=== PATIENT | female | born 1960 | race Caucasian/White ===

== ENCOUNTER 2017-07-04 06:07 | Inpatient (IN) | payer OTHER ==
[2017-07-01 09:46] LABS: BASOPHILS # (AUTO) 0.1 (0.0-0.1); EOSINOPHILS # (AUTO) 0.2 (0.0-0.4); EOSINOPHILS % 3.1 % (0.0-6.0); HEMATOCRIT 43.4 % (34.2-44.1); HEMOGLOBIN 14.5 g/dL (12.0-16.0); LYMPHOCYTES # (AUTO) 2.6 (1.0-3.2); LYMPHOCYTES % 37.4 % (18.0-39.1); MEAN CORPUSCULAR HEMOGLOBIN 31.2 pg (28-32); MEAN CORPUSCULAR HGB CONC 33.4 g/dL (31-35); MEAN CORPUSCULAR VOLUME 93.3 fL (81-99); MONOCYTES # (AUTO) 0.5 (0.2-0.8); MONOCYTES % 7.1 % (4.4-11.3); NEUTROPHILS # (AUTO) 3.6 (2.1-6.9); NEUTROPHILS % 51.1 % (38.7-80.0); PLATELET COUNT 346 x10e3/uL (140-360); RED BLOOD COUNT 4.65 x10e6/uL (3.6-5.1); RED CELL DISTRIBUTION WIDTH 13.1 % (11.7-14.4)
--- NOTE | 2017-07-01 10:02 | Diagnostic Imaging Report ---
PROCEDURE: X-RAY CHEST, TWO VIEWS COMPARISON: None. INDICATIONS: PRE OPERATIVE CHEST X-RAY FOR EXPLORATORY LAP SX FINDINGS: LUNGS: No consolidations or edema. PLEURA: No effusions or pneumothorax. HEART \T\ MEDIASTINUM: The heart is within normal size-limits. BONES \T\ SOFT TISSUES: No acute findings. Plate overlies the lower cervical spine. There are sternotomy wire sutures. CONCLUSION: No acute thoracic abnormality. Arsalan Blood D.O. Dictated by: Arsalan Blood D.O. on 07/01/2017 at 10:01 Electronically approved by: Arsalan Blood D.O. on 07/01/2017 at 10:01
[2017-07-01 10:06] LABS: ALANINE AMINOTRANSFERASE 22 IU/L (0-55); ALBUMIN 3.9 g/dL (3.5-5.0); ALBUMIN/GLOBULIN RATIO 1.2 (0.8-2.0); ALKALINE PHOSPHATASE 93 IU/L (40-150); BLOOD UREA NITROGEN 12 mg/dL (7-26); BUN/CREATININE RATIO 16 (6-25); CALCIUM 9.5 mg/dL (8.4-10.2); CARBON DIOXIDE 31 mmol/L (22-29); CHLORIDE 103 mmol/L (98-107); CREATININE, SERUM 0.76 mg/dL (0.57-1.11); EST GLOMERULAR FILTRATION RATE > 60 ML/MIN (60-); GLUCOSE 95 mg/dL (74-118); SODIUM 144 mmol/L (136-145)
[~2017-07-04] VITALS: Ht 162.6 cm; Wt 63.0 kg
[~2017-07-04 06:07] MED LIST: LIBRAX CAPSULE1 EACH PO; NORCO 10-325 T1 EACH PO; NORVASC10 MG PO
--- OUTSIDE RECORDS SUMMARY | 2017-07-04 06:10 | XMS REPORT ---
Author Author [facility] Address Unknown Phone Unavailable Care Team Providers Care Retail Pharmacy Technician Name Role Phone NATALIE CROWE Unavailable Unavailable Problems This patient has no known problems. Allergies, Adverse Reactions, Alerts This patient has no known allergies or adverse reactions. Medications This patient has no known medications. Results Test Description Test Time Test Comments Text Results Atomic Results Result Comments CHEST 2 VIEWS [place] [address] Patient Name: JERARDO WAGONER MR # : [id number] : 1960 Age/Sex: 57/F Req #: [id number] Adm Physician: Ordered by: NATALIE CROWE MD Report #: [id number] Location: OR Room/Bed: Procedure: [id number] DX/CHEST 2 VIEWS Exam Date: 07/01/17 Exam Time: 909 REPORT STATUS: Signed PROCEDURE: X-RAY CHEST, TWO VIEWS COMPARISON: None. INDICATIONS: PRE OPERATIVE CHEST X-RAY FOR EXPLORATORY LAP SX FINDINGS: LUNGS: No consolidations or edema. PLEURA: No effusions or pneumothorax. HEART T MEDIASTINUM: The heart is within normal size-limits. BONES T SOFT TISSUES: No acute findings. Plate overlies the lower cervical spine. There are sternotomy wire sutures. CONCLUSION: No acute thoracic abnormality. Dimple Blood D.O. Dictated by: Dimple Blood D.O. on 07/01/2017 at 10:01 Electronically approved by: Dimple Blood D.O. on 07/01/2017 at 10:01 Dictated By: DIMPLE BLOOD DO 1001 Transcribed By: FRANCISCO on 07/01/17 1001 COPY TO: NATALIE CROWE MD
[2017-07-04] MEDS ORDERED: BUPIVACAINE 0.25% 30ML SDV INJ ONE (10:15)
[2017-07-04] MEDS ORDERED: BUPIVACAINE LIPOSOME/PF 266 MG/20 ML IJ ONE (10:16)
[2017-07-04] MEDS ORDERED: HYDROMORPHONE 0.2MG/ML-SOD CHL 30ML PCA SYRINGE IV PRN (11:15)
[2017-07-04] MEDS ORDERED: NALOXONE HCL INJ 0.4 MG/ML AMP IV PRN (11:15)
[2017-07-04] MEDS ORDERED: ACETAMINOPHEN 1000 MG/100 ML IV PRN (11:15)
[2017-07-04] MEDS: SODIUM CHLORIDE 0.9% 250ML IRRIG IR SCH ×4 (11:15→23:20)
[2017-07-04] MEDS ORDERED: PROMETHAZINE HCL (IM) 25 MG/ML VIAL IV PRN (11:15)
[2017-07-04] MEDS ORDERED: HYDROMORPHONE 0.2MG/ML-SOD CHL 30ML PCA SYRINGE IV ONE (11:44)
[2017-07-04] MEDS ORDERED: HYDROMORPHONE 1MG/1ML INJ ONE ×2 (11:56→13:17)
[2017-07-04] MEDS: PANTOPRAZOLE 40 MG 10ML VIAL IV SCH ×2 (12:00→13:48)
[2017-07-04] MEDS ORDERED: CEFOXITIN 1GM/ DEXTROSE 50ML 50 ML IV SCH (12:00)
[2017-07-04] MEDS ORDERED: PROMETHAZINE HCL (IM) 25 MG/ML VIAL ONE (13:18)
[2017-07-04] MEDS ORDERED: PANTOPRAZOLE 40 MG 10ML VIAL ONE (13:46)
--- NOTE | 2017-07-04 13:50 | Operative Report ---
DATE OF PROCEDURE: July 04, 2017 PREOPERATIVE DIAGNOSIS: Mesenteric mass, rule out malignancy. POSTOPERATIVE DIAGNOSIS: Mesenteric mass, rule out malignancy, pending permanent section. OPERATION PERFORMED: Exploratory laparotomy, resection of mesenteric mass and right ileocolectomy. ASSISTANTS: Dr. Kaleb Huynh and OSKAR French. ANESTHESIA: General. COMPLICATIONS: None. ESTIMATED BLOOD LOSS: Minimal. DESCRIPTION OF PROCEDURE: With the patient lying in bed in the supine position, under good general anesthesia, the abdomen was prepped with Betadine solution and draped in the usual manner. A midline incision was made. It was carried down through the subcutaneous tissue down to the midline fascia. The midline fascia was opened. There were some sutures there from the patient's previous surgeries, and these were removed. The peritoneum was opened, and the abdomen was entered. Upon entering the abdominal cavity, examination immediately revealed in the ileal area there was a mass in the mesentery, which was consistent with a lot of lymph nodes. This was consistent probably with some type of carcinoid or similar type of tumor. The exploration of the rest of the abdominal cavity revealed the liver to be clean. There were some adhesions from her previous upper abdominal surgery. The colon was examined, and on palpation no other lesions were identified. The entire small bowel was run from one end to the other. The only positive findings were to the area of the terminal ileum. There was an area where there appeared to be an intraluminal mass. This was identified with a silk suture, and this was in the area that would drain to the lymph node mass that was present in the mesentery. At this point, we went ahead and resected the small bowel with the mesentery involved. The small bowel was divided proximally with a KENNY stapler. The mesentery was then slowly and carefully divided with the Enseal device. The right ileocolic artery below where the mass was was ligated with #0 silk and divided. At this point, it became evident that the right colon was part of the distribution of the blood supply and we needed to go ahead and extend the resection to the right colon. The right colon had been previously mobilized off the lateral gutter and was then divided about snf up the ascending colon, almost just below the hepatic flexure, with another application of the KENNY-75 stapler. The specimen was sent for frozen section. Frozen section came back as possibly carcinoid, but it was not conclusive. They needed to wait until permanent section was done. Again, the bowel was run in all directions. No other abnormalities were identified. The rest of the abdominal cavity was otherwise within normal limits. The anastomosis was then done by bringing the ileum to the right colon with another application of the KENNY-75 stapler, and the remaining opening was closed with a TIA-60 stapler. Gloves and instruments were changed. The suture lines were then reinforced with 3-0 silk suture, and the mesenteric rent was closed with a running suture of 2-0 Vicryl. The abdomen was then copiously irrigated. All the excess fluid was aspirated. Perfect hemostasis was ascertained, and the abdomen was then closed in layers. Peritoneum was closed with a running suture of #1 Vicryl. The midline fascia was closed with a running suture of #1 Vicryl. All layers were infiltrated on the way out with Exparel and Marcaine. The skin was closed with clips. Dressings were applied. The sponge, lap and needle count was correct. Patient tolerated the procedure well and returned to the recovery room in stable condition. Job#: [id number]
[2017-07-04] MEDS: CEFOXITIN SOD 1 GM VIAL IV SCH ×2 (15:58→20:58)
[2017-07-04 15:59] VITALS: BP 143/82
[2017-07-04 16:16] VITALS: BP 143/82
[2017-07-04 16:24] VITALS: BP 143/82
[2017-07-04] MEDS ORDERED: PROPOFOL IV EMULSION 10 MG/ML 20 ML VIAL ONE (17:27)
[2017-07-04] MEDS ORDERED: LIDOCAINE HCL 2% LOCAL INJ 5 ML SDV VIAL INJ ONE (17:27)
[2017-07-04] MEDS ORDERED: DEXAMETHASONE SOD PHOS INJ 4 MG/ML VIAL ONE (17:27)
[2017-07-04] MEDS ORDERED: SEVOFLURANE INHAL SOLN 250 ML PEN BTL ONE (17:27)
[2017-07-04] MEDS ORDERED: ROCURONIUM BROMIDE 10 MG/ML 5ML VIAL ONE (17:27)
[2017-07-04] MEDS ORDERED: NEOSTIGMINE 5 MG/5ML SYR ONE (17:27)
[2017-07-04] MEDS ORDERED: CEFOXITIN SOD 1 GM VIAL ONE (17:27)
[2017-07-04] MEDS ORDERED: GLYCOPYRROLATE INJ 1MG/ 5 ML SYR ONE (17:27)
[2017-07-04] MEDS ORDERED: ONDANSETRON HCL INJ 2 MG/ML VIAL ONE (17:27)
[2017-07-04] MEDS ORDERED: MIDAZOLAM HCL 2 MG/2 ML VIAL ONE (18:33)
[2017-07-04] MEDS ORDERED: FENTANYL CITRATE/PF 100MCG/2 ML INJ ONE (18:33)
[2017-07-04] MEDS: DEXTROSE 5%/LACTATED RINGERS 1,000 ML IV SCH ×2 (18:44→20:58)
[2017-07-04 20:15] VITALS: BP 148/70
[2017-07-05] VITALS (8 sets, daily range): BP systolic 148–197; BP diastolic 70–87
[2017-07-05] MEDS: SODIUM CHLORIDE 0.9% 250ML IRRIG IR SCH ×6 (03:39→23:15)
[2017-07-05] MEDS: PROMETHAZINE 12.5MG/ NACL 0.9% 50 ML IV PRN ×3 (06:50→15:19)
[2017-07-05 07:08] LABS: BASOPHILS % 0.1 % (0.0-1.0); HEMATOCRIT 40.1 % (34.2-44.1); HEMOGLOBIN 13.5 g/dL (12.0-16.0); LYMPHOCYTES # (AUTO) 1.3 (1.0-3.2); MEAN CORPUSCULAR HEMOGLOBIN 31.3 pg (28-32); MEAN CORPUSCULAR HGB CONC 33.7 g/dL (31-35); MONOCYTES % 6.7 % (4.4-11.3); NEUTROPHILS # (AUTO) 11.9 (2.1-6.9); NEUTROPHILS % 82.9 % (38.7-80.0); PLATELET COUNT 338 x10e3/uL (140-360); RED BLOOD COUNT 4.31 x10e6/uL (3.6-5.1); RED CELL DISTRIBUTION WIDTH 12.9 % (11.7-14.4)
[2017-07-05] MEDS: DEXTROSE 5%/LACTATED RINGERS 1,000 ML IV SCH ×3 (07:10→22:11)
[2017-07-05 07:42] LABS: ANION GAP 10.9 mmol/L (8-16); BLOOD UREA NITROGEN 8 mg/dL (7-26); BUN/CREATININE RATIO 10 (6-25); CALCIUM 9.4 mg/dL (8.4-10.2); CARBON DIOXIDE 30 mmol/L (22-29); CHLORIDE 97 mmol/L (98-107); CREATININE, SERUM 0.82 mg/dL (0.57-1.11); EST GLOMERULAR FILTRATION RATE > 60 ML/MIN (60-); GLUCOSE 155 mg/dL (74-118); POTASSIUM 3.9 mmol/L (3.5-5.1); SODIUM 134 mmol/L (136-145)
[2017-07-05] MEDS: NITROGLYCERIN 2% OINT 1 GM PKT TOP SCH ×3 (08:28→22:32)
[2017-07-05] MEDS ORDERED: HYDROMORPHONE 0.2MG/ML-SOD CHL 30ML PCA SYRINGE IV PRN (10:15)
[2017-07-06] VITALS (7 sets, daily range): BP systolic 144–175; BP diastolic 72–93
[2017-07-06] MEDS: NITROGLYCERIN 2% OINT 1 GM PKT TOP SCH ×4 (02:54→21:26)
[2017-07-06] MEDS: SODIUM CHLORIDE 0.9% 250ML IRRIG IR SCH (02:54)
[2017-07-06 07:10] LABS: BASOPHILS % 0.2 % (0.0-1.0); EOSINOPHILS % 0.1 % (0.0-6.0); HEMATOCRIT 41.8 % (34.2-44.1); HEMOGLOBIN 14.3 g/dL (12.0-16.0); LYMPHOCYTES # (AUTO) 1.7 (1.0-3.2); LYMPHOCYTES % 12.9 % (18.0-39.1); MEAN CORPUSCULAR HEMOGLOBIN 31.6 pg (28-32); MEAN CORPUSCULAR HGB CONC 34.2 g/dL (31-35); MEAN CORPUSCULAR VOLUME 92.3 fL (81-99); MONOCYTES % 7.3 % (4.4-11.3); NEUTROPHILS # (AUTO) 10.4 (2.1-6.9); PLATELET COUNT 363 x10e3/uL (140-360); RED BLOOD COUNT 4.53 x10e6/uL (3.6-5.1); RED CELL DISTRIBUTION WIDTH 12.9 % (11.7-14.4)
[2017-07-06 07:37] LABS: ANION GAP 13.2 mmol/L (8-16); BLOOD UREA NITROGEN 7 mg/dL (7-26); BUN/CREATININE RATIO 9 (6-25); CALCIUM 9.9 mg/dL (8.4-10.2); CARBON DIOXIDE 34 mmol/L (22-29); CHLORIDE 96 mmol/L (98-107); CREATININE, SERUM 0.75 mg/dL (0.57-1.11); EST GLOMERULAR FILTRATION RATE > 60 ML/MIN (60-); GLUCOSE 130 mg/dL (74-118); POTASSIUM 3.2 mmol/L (3.5-5.1); SODIUM 140 mmol/L (136-145)
[2017-07-06] MEDS: PANTOPRAZOLE 40 MG 10ML VIAL IV SCH (12:30)
[2017-07-06] MEDS: DEXTROSE 5%/LACTATED RINGERS 1,000 ML IV SCH ×2 (12:58→22:41)
[2017-07-06] MEDS: PROMETHAZINE 12.5MG/ NACL 0.9% 50 ML IV PRN (22:41)
[2017-07-07] VITALS (7 sets, daily range): BP systolic 119–156; BP diastolic 73–83
[2017-07-07] MEDS: NITROGLYCERIN 2% OINT 1 GM PKT TOP SCH ×3 (04:30→15:44)
[2017-07-07 07:14] LABS: BASOPHILS % 0.3 % (0.0-1.0); EOSINOPHILS # (AUTO) 0.1 (0.0-0.4); EOSINOPHILS % 1.3 % (0.0-6.0); HEMATOCRIT 38.6 % (34.2-44.1); HEMOGLOBIN 13.1 g/dL (12.0-16.0); LYMPHOCYTES # (AUTO) 1.8 (1.0-3.2); LYMPHOCYTES % 23.3 % (18.0-39.1); MEAN CORPUSCULAR HEMOGLOBIN 31.3 pg (28-32); MEAN CORPUSCULAR HGB CONC 33.9 g/dL (31-35); MEAN CORPUSCULAR VOLUME 92.3 fL (81-99); MONOCYTES # (AUTO) 0.6 (0.2-0.8); MONOCYTES % 8.3 % (4.4-11.3); NEUTROPHILS # (AUTO) 5.1 (2.1-6.9); NEUTROPHILS % 66.4 % (38.7-80.0); PLATELET COUNT 314 x10e3/uL (140-360); RED BLOOD COUNT 4.18 x10e6/uL (3.6-5.1); RED CELL DISTRIBUTION WIDTH 12.7 % (11.7-14.4)
[2017-07-07 07:38] LABS: ANION GAP 10.9 mmol/L (8-16); BLOOD UREA NITROGEN 11 mg/dL (7-26); BUN/CREATININE RATIO 15 (6-25); CALCIUM 9.1 mg/dL (8.4-10.2); CARBON DIOXIDE 33 mmol/L (22-29); CHLORIDE 99 mmol/L (98-107); CREATININE, SERUM 0.74 mg/dL (0.57-1.11); EST GLOMERULAR FILTRATION RATE > 60 ML/MIN (60-); GLUCOSE 105 mg/dL (74-118); SODIUM 140 mmol/L (136-145)
[2017-07-07 07:43] LABS: POTASSIUM 2.9 mmol/L (3.5-5.1)
[2017-07-07] MEDS: DEXTROSE 5%/LACTATED RINGERS 1,000 ML IV SCH ×2 (09:12→19:42)
[2017-07-07 10:59] LABS: ANISOCYTOSIS SLIGHT; HYPOCHROMASIA SLIGHT; PLATELET ESTIMATE ADEQUATE; PLATELET MORPHOLOGY COMMENT NORMAL; RBC MORPHOLOGY COMMENT NORMAL
[2017-07-07] MEDS: PANTOPRAZOLE 40 MG 10ML VIAL IV SCH (12:39)
[2017-07-07] MEDS ORDERED: POTASSIUM CHLORIDE 20MEQ/100ML 100 ML IV ONE ×2 (13:15→19:00)
[2017-07-07] MEDS ORDERED: POTASSIUM CHLORIDE 20 MEQ TAB CR PO NR ×3 (13:30→21:00)
[2017-07-07] MEDS ORDERED: SODIUM CHLORIDE 0.9% 250ML 250 ML ONE (19:05)
[2017-07-07] MEDS: PROMETHAZINE 12.5MG/ NACL 0.9% 50 ML IV PRN (19:15)
[2017-07-07] MEDS ORDERED: POTASSIUM CHLORIDE 20 MEQ TAB CR PO SCH (20:45)
[2017-07-07] MEDS: HYDROMORPHONE 1MG/1ML INJ IV PRN (21:03)
[2017-07-08] VITALS (7 sets, daily range): BP systolic 132–168; BP diastolic 67–97
[2017-07-08] MEDS: HYDROMORPHONE 1MG/1ML INJ IV PRN ×3 (03:01→16:41)
[2017-07-08 07:30] LABS: ANION GAP 10.1 mmol/L (8-16); BLOOD UREA NITROGEN 11 mg/dL (7-26); BUN/CREATININE RATIO 15 (6-25); CARBON DIOXIDE 28 mmol/L (22-29); CHLORIDE 103 mmol/L (98-107); CREATININE, SERUM 0.71 mg/dL (0.57-1.11); EST GLOMERULAR FILTRATION RATE > 60 ML/MIN (60-); GLUCOSE 94 mg/dL (74-118); POTASSIUM 4.1 mmol/L (3.5-5.1); SODIUM 137 mmol/L (136-145)
[2017-07-08] MEDS ORDERED: AMLODIPINE BESYLATE 10 MG TAB PO SCH (09:00)
[2017-07-08] MEDS: HYDROCODONE/APAP 7.5MG-325MG 1 EA TAB PO PRN ×2 (11:15→20:03)
[2017-07-08] MEDS: PANTOPRAZOLE 40 MG 10ML VIAL IV SCH (12:00)
[2017-07-08] MEDS: DEXTROSE 5%/LACTATED RINGERS 1,000 ML IV SCH (16:41)
--- NOTE | 2017-09-05 10:14 | Discharge Summary ---
ADMITTING DIAGNOSIS: Mesenteric mass. DISCHARGE DIAGNOSIS: Mesenteric mass. OPERATION PERFORMED: Exploratory laparotomy, right colectomy, resection of mesenteric mass. COMPLICATIONS: None. HISTORY OF PRESENT ILLNESS: This 57-year-old female was admitted to the hospital with a history of persistent right-sided abdominal pain, inability to eat and now weight loss. Evaluation showed her to have a mesenteric mass, and she was thus admitted for surgical resection. Physical examination at the time of admission was only remarkable for some right-sided abdominal tenderness. Laboratory data was otherwise within normal limits. HOSPITAL COURSE: The patient went to surgery on the day of admission where she underwent an uneventful exploratory laparotomy with resection of mesenteric mass and right colectomy. Postoperatively, the patient did well. Her NG tube was removed on the 1st postoperative day, and she was started on a clear liquid diet on the 2nd postoperative day which was slowly and carefully advanced. She was having normal bowel movements. Finally, on 07/08/2017, with the patient being afebrile, her vital signs being stable, her wounds healing nicely, she was discharged to go home to be followed at the office at a later date. NATALIE CROWE MD Job#: [id number]
== END 2017-07-08 20:47 | disposition home or self-care (01) | DRG 331 ==
LOC: OR 06:07 → MED/SURG 15:28
PROVIDERS: ADMIT Surgery; ATTEND Surgery
PROC: 0DT80ZZ Resection of Small Intestine, Open Approach (ICD-10-PCS; principal; 2017-07-04 08:45)
PROC: 0DTF0ZZ Resection of Right Large Intestine, Open Approach (ICD-10-PCS; principal; 2017-07-04 08:45)
DX: K65.1 Peritoneal abscess (principal); I10 Essential (primary) hypertension; Z98.1 Arthrodesis status
CPT/HCPCS: 36415; 71046; 80048; 80053; 85025; 88307; 88309; 88313; 88331; 88333; 93005; J0694; J1100; J1170; J2001; J2250; J2405; J2550; J3480; J7050; J7120